=== PATIENT | male | born 1965 | race Hispanic/Latino ===

== ENCOUNTER 2017-12-25 15:47 | Inpatient (IN) | payer MEDICARE ==
[~2017-12-25] VITALS: Ht 170.2 cm; Wt 61.0 kg
[2017-12-25] MEDS ORDERED: ONDANSETRON HCL 4 MG/2 ML VIAL ONE (17:43)
[2017-12-25] MEDS ORDERED: IBUPROFEN 600 MG TABLET ONE (17:44)
[2017-12-25] MEDS ORDERED: LEVOFLOXACIN 500 MG/D5W 100 ML 100 ML ONE (17:44)
[2017-12-25] MEDS ORDERED: CEFTRIAXONE SODIUM 2 GM VIAL ONE (17:44)
[2017-12-25] MEDS ORDERED: MORPHINE SULFATE 2 MG/ML 1ML SYG ONE (17:45)
[2017-12-25 17:50] LABS: BASOPHILS % (AUTO) 0.2 % (0.0-5.0); HEMATOCRIT 30.6 % (42-54); LYMPHOCYTES % (AUTO) 4.6 % (21.0-51.0); MEAN CORPUSCULAR HEMOGLOBIN 28.3 pg (27.0-33.0); MEAN CORPUSCULAR HGB CONC 32.2 g/dL (32.0-36.0); MEAN CORPUSCULAR VOLUME 87.9 fL (79-99); NEUTROPHILS % (AUTO) 89.2 % (40.0-77.0); PLATELET COUNT (AUTO) 262 K/uL (130-400); RED BLOOD CELL COUNT(AUTO) 3.48 MIL/uL (4.50-6.20); WHITE BLOOD COUNT (AUTO) 20.5 K/uL (4.8-10.8)
[2017-12-25 18:02] LABS: INR 0.99 (0.85-1.15); PARTIAL THROMBOPLASTIN TIME 27.7 SEC (26.3-35.5); PROTHROMBIN TIME 10.4 SEC (9.6-11.6)
[2017-12-25 18:25] LABS: ALANINE AMINOTRANSFERASE 20 U/L (12-78); ASPARTATE AMINOTRANSFERASE 23 U/L (10-37); BILIRUBIN,TOTAL 0.3 mg/dL (0.2-1.0); CARBON DIOXIDE 16 mmol/L (21-32); CHLORIDE 99 mmol/L (101-111); CREATINE KINASE MB 2.7 ng/mL (0.5-3.6); CREATINE KINASE, TOTAL 207 U/L (21-232); CREATININE 6.3 mg/dL (0.5-1.5); GLOMERULAR FILTR. RATE CALC 10 mL/min (>60); GLUCOSE,RANDOM 206 mg/dL (70-105); MYOGLOBIN 1206 ng/mL (10-92); POTASSIUM 4.8 mmol/L (3.5-5.1); SODIUM SERUM 133 mmol/L (136-145); TOTAL PROTEIN, SERUM 7.2 g/dL (6.0-8.3); TROPONIN I < 0.04 ng/mL (0.00-0.06)
[2017-12-25 18:27] LABS: UREA NITROGEN, BLOOD 102 mg/dL (7-18)
[2017-12-25] MEDS ORDERED: IBUPROFEN 100 MG/5 ML SUSP UDCUP ONE (20:44)
[2017-12-25] MEDS: SODIUM CHLORIDE 0.9% 1000ML 1,000 ML IV SCH (21:15)
[2017-12-26] MEDS ORDERED: LORAZEPAM 2 MG/ML 1 ML VIAL ONE (00:13)
[2017-12-26 00:50] VITALS: BP 90/50
[2017-12-26] MEDS ORDERED: INSLAN SQ (00:54)
[2017-12-26] MEDS: SODIUM CHLORIDE 0.9% 1000ML 1,000 ML IV SCH ×4 (01:15→16:38)
[2017-12-26] MEDS ORDERED: DEXTROSE 50%-WATER 50 ML DISP.SYRIN IV PRN (02:30)
[2017-12-26] MEDS ORDERED: GLUCAGON 1MG KIT 1 MG ML IM PRN (02:30)
[2017-12-26] MEDS ORDERED: ONDANSETRON HCL MDV 20ML 2 MG/ML VIAL IVP PRN (02:45)
[2017-12-26 03:30] VITALS: BP 92/52
[2017-12-26 04:53] LABS: BASOPHILS % (AUTO) 0.3 % (0.0-5.0); EOSINOPHILS % (AUTO) 0.2 % (0.0-8.0); HEMATOCRIT 28.3 % (42-54); LYMPHOCYTES % (AUTO) 6.9 % (21.0-51.0); MEAN CORPUSCULAR HGB CONC 33.4 g/dL (32.0-36.0); MEAN CORPUSCULAR VOLUME 89.6 fL (79-99); MONOCYTES % (AUTO) 4.5 % (3.0-13.0); NEUTROPHILS % (AUTO) 88.1 % (40.0-77.0); PLATELET COUNT (AUTO) 268 K/uL (130-400); RED BLOOD CELL COUNT(AUTO) 3.16 MIL/uL (4.50-6.20); RED CELL DISTRIBUTION WIDTH 13.9 % (11.0-15.5); WHITE BLOOD COUNT (AUTO) 17.8 K/uL (4.8-10.8)
[2017-12-26 05:37] LABS: ALBUMIN 2.5 g/dL (3.5-5.0); BILIRUBIN,TOTAL 0.1 mg/dL (0.2-1.0); CREATININE 6.3 mg/dL (0.5-1.5); POTASSIUM 4.8 mmol/L (3.5-5.1); TOTAL PROTEIN, SERUM 6.5 g/dL (6.0-8.3)
[2017-12-26 06:04] LABS: HIGH SENSITIVITY CRP 142.44 mg/L (0.0-3.0)
[2017-12-26] MEDS: INSULIN HUMULIN R 100 UNIT/ML 3ML SQ SCH ×4 (06:06→21:00)
[2017-12-26] MEDS: ZOSYN 3.375GM+NS 50ML 50 ML IV SCH ×2 (06:27→18:01)
[2017-12-26 07:49] VITALS: BP 159/62
[2017-12-26 08:34] LABS: APPEARANCE,URINE Clear (CLEAR); BILIRUBIN,URINE Negative (NEGATIVE); COLOR,URINE Yellow (YELLOW); GLUCOSE, URINE (UA) 250 mg/dL (NEGATIVE); KETONES,URINE Negative (NEGATIVE); LEUKOCYTE ESTERASE ,URINE Negative (NEGATIVE); NITRATE,URINE Negative (NEGATIVE); OCCULT BLOOD,URINE Trace (NEGATIVE); PROTEIN,URINE 300 (NEGATIVE); UROBILINOGEN,URINE 0.2 mg/dL (0.2-1.0)
[2017-12-26 09:07] LABS: BACTERIA,URINE Rare /HPF (None Seen); RBC,URINE 0-1 /HPF (0-1); SQUAMOUS EPITHELIAL CELL,UR Rare /HPF (0-2); WBC,URINE 0-1 /HPF (0-1)
[2017-12-26] MEDS ORDERED: SODIUM CHLORIDE 0.9% 1000ML 1,000 ML IV SCH (09:36)
[2017-12-26] MEDS ORDERED: VANCOMYCIN PROTOCOL PER PHARMACY IV SCH (10:00)
[2017-12-26] MEDS: VANCOMYCIN 1GM+NS 250ML 250 ML IV SCH (10:24)
[2017-12-26 11:27] VITALS: BP 123/53
[2017-12-26] MEDS ORDERED: FENO54TA6 PO (13:55)
[2017-12-26] MEDS ORDERED: PATI8.4P PO (13:55)
[2017-12-26] MEDS ORDERED: FISH OIL PO (13:55)
[2017-12-26] MEDS ORDERED: ATOR20TA65 PO (13:55)
[2017-12-26] MEDS ORDERED: CILO50TA PO (13:55)
[2017-12-26] MEDS ORDERED: MULT-729 PO (13:55)
[2017-12-26] MEDS ORDERED: PANT40TA PO (13:55)
[2017-12-26] MEDS ORDERED: CALC625T77 PO (13:55)
[2017-12-26] MEDS ORDERED: ENAL5TAB PO (13:55)
[2017-12-26] MEDS ORDERED: ASPI-891 PO (13:55)
[2017-12-26] MEDS ORDERED: ESCI5TAB10 PO (13:55)
[2017-12-26 16:14] VITALS: BP 111/54
[2017-12-26 19:15] VITALS: BP 128/60
[2017-12-27] MEDS: HYDROCODONE/ACETAMINOPHEN 7.5/325 MG TAB PO PRN (01:11)
[2017-12-27] MEDS: SODIUM CHLORIDE 0.9% 1000ML 1,000 ML IV SCH ×3 (01:11→18:00)
[2017-12-27 03:40] VITALS: BP 120/59
[2017-12-27] MEDS: ZOSYN 3.375GM+NS 50ML 50 ML IV SCH ×2 (05:11→18:00)
[2017-12-27 05:21] LABS: HEMATOCRIT 26.5 % (42-54); MEAN CORPUSCULAR HEMOGLOBIN 28.9 pg (27.0-33.0); MEAN CORPUSCULAR HGB CONC 32.5 g/dL (32.0-36.0); MEAN CORPUSCULAR VOLUME 88.9 fL (79-99); PLATELET COUNT (AUTO) 247 K/uL (130-400); RED BLOOD CELL COUNT(AUTO) 2.98 MIL/uL (4.50-6.20); RED CELL DISTRIBUTION WIDTH 13.7 % (11.0-15.5); WHITE BLOOD COUNT (AUTO) 13.6 K/uL (4.8-10.8)
[2017-12-27 05:30] LABS: POTASSIUM 4.1 mmol/L (3.5-5.1)
[2017-12-27] MEDS: INSULIN HUMULIN R 100 UNIT/ML 3ML SQ SCH ×4 (05:59→20:56)
[2017-12-27 07:52] VITALS: BP 129/75
[2017-12-27 11:12] VITALS: BP 129/61
[2017-12-27] MEDS: ACETAMINOPHEN 325 MG TAB PO PRN (14:21)
[2017-12-27 16:56] VITALS: BP 120/55
[2017-12-27] MEDS: FENOFIBRATE 67 MG PO SCH (17:00)
[2017-12-27] MEDS: FISH OIL 1000 MG/CAP PO SCH (17:13)
[2017-12-27] MEDS: PSYLLIUM SEED 1 EACH PACKET PO SCH (17:16)
[2017-12-27] MEDS ORDERED: COMPOUND IV MISC 1 EACH IVSOLN MISC PRN (18:30)
[2017-12-27 20:04] VITALS: BP 123/53
[2017-12-27] MEDS: ATORVASTATIN CALCIUM 20 MG TABLET PO SCH (20:45)
[2017-12-27] MEDS: IRON SUCROSE COMPLEX 100 MG in SODIUM CHLORIDE 0.9% 50 ML IV SCH (20:52)
[2017-12-28 00:08] VITALS: BP 119/59
[2017-12-28] MEDS: SODIUM CHLORIDE 0.9% 1000ML 1,000 ML IV SCH ×3 (00:41→20:53)
[2017-12-28] MEDS: ZOSYN 3.375GM+NS 50ML 50 ML IV SCH ×2 (00:41→17:12)
[2017-12-28] MEDS: ACETAMINOPHEN 325 MG TAB PO PRN ×3 (03:49→19:45)
[2017-12-28 04:12] VITALS: BP 153/64
[2017-12-28] MEDS: INSULIN HUMULIN R 100 UNIT/ML 3ML SQ SCH ×4 (05:56→20:51)
[2017-12-28] MEDS: INSULIN GLARGINE 100 UNITS/ML 10 ML VIAL SQ SCH (07:20)
[2017-12-28 07:58] VITALS: BP 138/55
[2017-12-28] MEDS: FOLIC ACID/VITAMIN B COMP W-C 1 MG CAPSULE PO SCH (07:59)
[2017-12-28] MEDS: FISH OIL 1000 MG/CAP PO SCH ×3 (07:59→17:10)
[2017-12-28] MEDS: ASPIRIN 325MG EC TAB 325 MG TABLET.DR PO SCH (07:59)
[2017-12-28] MEDS: FENOFIBRATE 67 MG PO SCH ×2 (08:00→17:00)
[2017-12-28] MEDS: PATIROMER CALCIUM SORBITEX 8.4 GM PO SCH (08:00)
[2017-12-28] MEDS: ENOXAPARIN SODIUM 30 MG/0.3 ML SQ SCH (08:01)
[2017-12-28] MEDS: PANTOPRAZOLE SODIUM 40 MG TABLET.DR PO SCH (08:02)
[2017-12-28] MEDS: MULTIVITAMIN WITH MINERALS TABLET PO SCH (08:06)
[2017-12-28] MEDS: IRON SUCROSE COMPLEX 100 MG in SODIUM CHLORIDE 0.9% 50 ML IV SCH (08:07)
[2017-12-28] MEDS: PSYLLIUM SEED 1 EACH PACKET PO SCH (08:07)
[2017-12-28] MEDS: VANCOMYCIN 1GM+NS 250ML 250 ML IV SCH (11:30)
[2017-12-28 12:07] VITALS: BP 171/85
[2017-12-28] MEDS ORDERED: LEVOFLOXACIN 500 MG TABLET PO SCH (12:30)
[2017-12-28 13:28] LABS: BASOPHILS % (AUTO) 0.1 % (0.0-5.0); HEMATOCRIT 33.4 % (42-54); LYMPHOCYTES % (AUTO) 2.6 % (21.0-51.0); MEAN CORPUSCULAR HEMOGLOBIN 29.7 pg (27.0-33.0); MEAN CORPUSCULAR HGB CONC 33.7 g/dL (32.0-36.0); MEAN CORPUSCULAR VOLUME 88.2 fL (79-99); MONOCYTES % (AUTO) 6.6 % (3.0-13.0); NEUTROPHILS % (AUTO) 90.7 % (40.0-77.0); NUCLEATED RED BLOOD CELLS 0.1 % (0.0-0.19); PLATELET COUNT (AUTO) 299 K/uL (130-400); RED BLOOD CELL COUNT(AUTO) 3.79 MIL/uL (4.50-6.20); RED CELL DISTRIBUTION WIDTH 13.9 % (11.0-15.5); WHITE BLOOD COUNT (AUTO) 17.6 K/uL (4.8-10.8)
[2017-12-28 13:39] LABS: CREATININE 5.8 mg/dL (0.5-1.5); POTASSIUM 4.4 mmol/L (3.5-5.1)
[2017-12-28 16:26] VITALS: BP 113/61
[2017-12-28] MEDS: ATORVASTATIN CALCIUM 20 MG TABLET PO SCH (19:44)
[2017-12-28 20:08] VITALS: BP 150/71
[2017-12-28] MEDS: HYDROCODONE/ACETAMINOPHEN 7.5/325 MG TAB PO PRN (22:45)
[2017-12-29 00:08] VITALS: BP 111/52
[2017-12-29 04:08] VITALS: BP 124/60
[2017-12-29] MEDS: ZOSYN 3.375GM+NS 50ML 50 ML IV SCH ×2 (05:09→18:09)
[2017-12-29 05:59] LABS: BASOPHILS % (AUTO) 0.2 % (0.0-5.0); EOSINOPHILS % (AUTO) 0.7 % (0.0-8.0); HEMATOCRIT 28.4 % (42-54); LYMPHOCYTES % (AUTO) 7.5 % (21.0-51.0); MEAN CORPUSCULAR HEMOGLOBIN 29.1 pg (27.0-33.0); MEAN CORPUSCULAR HGB CONC 32.2 g/dL (32.0-36.0); MEAN CORPUSCULAR VOLUME 90.3 fL (79-99); MONOCYTES % (AUTO) 8.4 % (3.0-13.0); NEUTROPHILS % (AUTO) 83.2 % (40.0-77.0); PLATELET COUNT (AUTO) 228 K/uL (130-400); RED BLOOD CELL COUNT(AUTO) 3.15 MIL/uL (4.50-6.20); RED CELL DISTRIBUTION WIDTH 14.5 % (11.0-15.5); WHITE BLOOD COUNT (AUTO) 13.2 K/uL (4.8-10.8)
[2017-12-29 06:09] LABS: MAGNESIUM 1.5 mg/dL (1.80-2.40); PHOSPHORUS 3.5 mg/dL (2.5-4.9); POTASSIUM 4.2 mmol/L (3.5-5.1)
[2017-12-29] MEDS: PANTOPRAZOLE SODIUM 40 MG TABLET.DR PO SCH (06:14)
[2017-12-29] MEDS: INSULIN HUMULIN R 100 UNIT/ML 3ML SQ SCH ×4 (06:45→20:31)
[2017-12-29] MEDS: INSULIN GLARGINE 100 UNITS/ML 10 ML VIAL SQ SCH (06:46)
[2017-12-29 07:48] VITALS: BP 173/81
[2017-12-29] MEDS: FENOFIBRATE 67 MG PO SCH ×2 (08:00→17:00)
[2017-12-29] MEDS: PATIROMER CALCIUM SORBITEX 8.4 GM PO SCH (09:00)
[2017-12-29] MEDS: PSYLLIUM SEED 1 EACH PACKET PO SCH (09:00)
[2017-12-29] MEDS ORDERED: LACTULOSE 20 GM/30 ML UDCUP PO PRN (10:00)
[2017-12-29] MEDS: ENOXAPARIN SODIUM 30 MG/0.3 ML SQ SCH (10:01)
[2017-12-29] MEDS: MULTIVITAMIN WITH MINERALS TABLET PO SCH (10:01)
[2017-12-29] MEDS: ASPIRIN 325MG EC TAB 325 MG TABLET.DR PO SCH (10:01)
[2017-12-29] MEDS: FISH OIL 1000 MG/CAP PO SCH ×3 (10:01→17:03)
[2017-12-29] MEDS: FOLIC ACID/VITAMIN B COMP W-C 1 MG CAPSULE PO SCH (10:01)
[2017-12-29] MEDS: SODIUM CHLORIDE 0.9% 1000ML 1,000 ML IV SCH ×2 (10:27→18:10)
[2017-12-29 11:24] VITALS: BP 105/97
[2017-12-29] MEDS: ACETAMINOPHEN 325 MG TAB PO PRN (13:12)
[2017-12-29] MEDS: IRON SUCROSE COMPLEX 100 MG in SODIUM CHLORIDE 0.9% 50 ML IV SCH (14:46)
[2017-12-29 16:16] VITALS: BP 125/59
[2017-12-29] MEDS ORDERED: PHARMACY COMMUNICATION MISC SCH (17:00)
[2017-12-29] MEDS: MEROPENEM 500 MG VIAL IVP SCH (18:26)
[2017-12-29 20:08] VITALS: BP 152/68
[2017-12-29] MEDS: ATORVASTATIN CALCIUM 20 MG TABLET PO SCH (20:12)
[2017-12-30] VITALS (7 sets, daily range): BP systolic 124–172; BP diastolic 52–83
[2017-12-30] MEDS: SODIUM CHLORIDE 0.9% 1000ML 1,000 ML IV SCH ×4 (03:36→23:31)
[2017-12-30] MEDS: ZOSYN 3.375GM+NS 50ML 50 ML IV SCH ×2 (04:35→20:54)
[2017-12-30] MEDS: MEROPENEM 500 MG VIAL IVP SCH ×2 (04:36→20:54)
[2017-12-30] MEDS: INSULIN HUMULIN R 100 UNIT/ML 3ML SQ SCH ×4 (05:57→21:00)
[2017-12-30] MEDS: INSULIN GLARGINE 100 UNITS/ML 10 ML VIAL SQ SCH (07:30)
[2017-12-30] MEDS: PANTOPRAZOLE SODIUM 40 MG TABLET.DR PO SCH (07:30)
[2017-12-30] MEDS: FISH OIL 1000 MG/CAP PO SCH ×3 (08:00→17:00)
[2017-12-30] MEDS: FENOFIBRATE 67 MG PO SCH ×2 (08:00→17:00)
[2017-12-30] MEDS: PATIROMER CALCIUM SORBITEX 8.4 GM PO SCH (09:00)
[2017-12-30] MEDS: ENOXAPARIN SODIUM 30 MG/0.3 ML SQ SCH ×2 (09:00→09:29)
[2017-12-30] MEDS: PSYLLIUM SEED 1 EACH PACKET PO SCH (09:29)
[2017-12-30] MEDS: FOLIC ACID/VITAMIN B COMP W-C 1 MG CAPSULE PO SCH (09:29)
[2017-12-30] MEDS: ASPIRIN 325MG EC TAB 325 MG TABLET.DR PO SCH (09:29)
[2017-12-30] MEDS: IRON SUCROSE COMPLEX 100 MG in SODIUM CHLORIDE 0.9% 50 ML IV SCH (09:30)
[2017-12-30] MEDS: MULTIVITAMIN WITH MINERALS TABLET PO SCH (09:30)
[2017-12-30] MEDS: VANCOMYCIN 1GM+NS 250ML 250 ML IV SCH (10:52)
[2017-12-30 11:13] LABS: CREATININE 4.5 mg/dL (0.5-1.5)
[2017-12-30 11:19] LABS: MEAN CORPUSCULAR HEMOGLOBIN 29.3 pg (27.0-33.0); MEAN CORPUSCULAR HGB CONC 33.3 g/dL (32.0-36.0); MEAN CORPUSCULAR VOLUME 87.9 fL (79-99); PLATELET COUNT (AUTO) 274 K/uL (130-400); RED BLOOD CELL COUNT(AUTO) 3.08 MIL/uL (4.50-6.20); RED CELL DISTRIBUTION WIDTH 14.2 % (11.0-15.5); WHITE BLOOD COUNT (AUTO) 13.3 K/uL (4.8-10.8)
[2017-12-30] MEDS: NICOTINE 21 MG/ 24 HR PATCH TD SCH (14:51)
[2017-12-30] MEDS: FLUCONAZOLE 200 MG/NS 100 ML 100 ML IV SCH ×2 (18:15→23:31)
[2017-12-30] MEDS: ATORVASTATIN CALCIUM 20 MG TABLET PO SCH (19:57)
[2017-12-30] MEDS: ACETAMINOPHEN 325 MG TAB PO PRN (19:58)
[2017-12-30] MEDS: HYDROCODONE/ACETAMINOPHEN 7.5/325 MG TAB PO PRN (21:40)
[2017-12-31 03:16] VITALS: BP 165/77
[2017-12-31 05:29] LABS: HEMATOCRIT 26.1 % (42-54); MEAN CORPUSCULAR HEMOGLOBIN 28.7 pg (27.0-33.0); MEAN CORPUSCULAR HGB CONC 32.8 g/dL (32.0-36.0); MEAN CORPUSCULAR VOLUME 87.6 fL (79-99); PLATELET COUNT (AUTO) 256 K/uL (130-400); RED BLOOD CELL COUNT(AUTO) 2.98 MIL/uL (4.50-6.20); RED CELL DISTRIBUTION WIDTH 14.4 % (11.0-15.5)
[2017-12-31 05:37] LABS: CREATININE 4.5 mg/dL (0.5-1.5); POTASSIUM 4.1 mmol/L (3.5-5.1)
[2017-12-31] MEDS: MEROPENEM 500 MG VIAL IVP SCH ×2 (05:44→18:05)
[2017-12-31] MEDS: ZOSYN 3.375GM+NS 50ML 50 ML IV SCH ×2 (05:45→18:06)
[2017-12-31] MEDS: INSULIN HUMULIN R 100 UNIT/ML 3ML SQ SCH ×5 (05:54→21:31)
[2017-12-31] MEDS: INSULIN GLARGINE 100 UNITS/ML 10 ML VIAL SQ SCH (07:30)
[2017-12-31] MEDS: PANTOPRAZOLE SODIUM 40 MG TABLET.DR PO SCH (07:30)
[2017-12-31] MEDS: FISH OIL 1000 MG/CAP PO SCH ×3 (08:00→17:15)
[2017-12-31] MEDS: FENOFIBRATE 67 MG PO SCH ×2 (08:00→17:00)
[2017-12-31 08:54] VITALS: BP 166/79
[2017-12-31] MEDS: MULTIVITAMIN WITH MINERALS TABLET PO SCH (09:00)
[2017-12-31] MEDS: ASPIRIN 325MG EC TAB 325 MG TABLET.DR PO SCH (09:00)
[2017-12-31] MEDS: PATIROMER CALCIUM SORBITEX 8.4 GM PO SCH (09:00)
[2017-12-31] MEDS: ENOXAPARIN SODIUM 30 MG/0.3 ML SQ SCH (09:00)
[2017-12-31] MEDS: PSYLLIUM SEED 1 EACH PACKET PO SCH (09:00)
[2017-12-31] MEDS: FOLIC ACID/VITAMIN B COMP W-C 1 MG CAPSULE PO SCH (09:00)
[2017-12-31] MEDS: NICOTINE 21 MG/ 24 HR PATCH TD SCH (09:45)
[2017-12-31] MEDS: IRON SUCROSE COMPLEX 100 MG in SODIUM CHLORIDE 0.9% 50 ML IV SCH (09:45)
[2017-12-31] MEDS: FLUCONAZOLE 200 MG/NS 100 ML 100 ML IV SCH (10:13)
[2017-12-31 11:37] VITALS: BP 178/81
[2017-12-31] MEDS ORDERED: SODIUM CHLORIDE 0.9% 1000ML 1,000 ML IV SCH (12:45)
[2017-12-31] MEDS: AMLODIPINE BESYLATE 5 MG TAB PO SCH (12:58)
[2017-12-31 16:29] VITALS: BP 183/80
[2017-12-31] MEDS: HYDROCODONE/ACETAMINOPHEN 7.5/325 MG TAB PO PRN ×2 (17:09→20:03)
[2017-12-31] MEDS: METOPROLOL TARTRATE 25 MG TAB PO SCH (18:05)
[2017-12-31 19:37] VITALS: BP 149/75
[2017-12-31] MEDS: ATORVASTATIN CALCIUM 20 MG TABLET PO SCH (19:53)
[2017-12-31 23:50] VITALS: BP 140/74
[2018-01-01 04:46] VITALS: BP 132/66
[2018-01-01] MEDS: ZOSYN 3.375GM+NS 50ML 50 ML IV SCH ×2 (05:32→18:10)
[2018-01-01] MEDS: MEROPENEM 500 MG VIAL IVP SCH ×2 (05:32→18:10)
[2018-01-01] MEDS: INSULIN GLARGINE 100 UNITS/ML 10 ML VIAL SQ SCH (06:49)
[2018-01-01] MEDS: PANTOPRAZOLE SODIUM 40 MG TABLET.DR PO SCH (06:50)
[2018-01-01] MEDS: INSULIN HUMULIN R 100 UNIT/ML 3ML SQ SCH ×4 (06:50→21:39)
[2018-01-01] MEDS: METOPROLOL TARTRATE 25 MG TAB PO SCH ×2 (07:48→20:19)
[2018-01-01] MEDS: FENOFIBRATE 67 MG PO SCH ×2 (08:00→16:39)
[2018-01-01 08:14] VITALS: BP 155/80
[2018-01-01] MEDS: PATIROMER CALCIUM SORBITEX 8.4 GM PO SCH (09:00)
[2018-01-01] MEDS: PSYLLIUM SEED 1 EACH PACKET PO SCH (09:00)
[2018-01-01] MEDS: FOLIC ACID/VITAMIN B COMP W-C 1 MG CAPSULE PO SCH (09:00)
[2018-01-01] MEDS: ASPIRIN 325MG EC TAB 325 MG TABLET.DR PO SCH (09:00)
[2018-01-01] MEDS: MULTIVITAMIN WITH MINERALS TABLET PO SCH (09:00)
[2018-01-01] MEDS: AMLODIPINE BESYLATE 5 MG TAB PO SCH (09:00)
[2018-01-01] MEDS: ENOXAPARIN SODIUM 30 MG/0.3 ML SQ SCH (09:00)
[2018-01-01] MEDS: FLUCONAZOLE 200 MG/NS 100 ML 100 ML IV SCH (09:06)
[2018-01-01] MEDS: IRON SUCROSE COMPLEX 100 MG in SODIUM CHLORIDE 0.9% 50 ML IV SCH (09:06)
[2018-01-01] MEDS ORDERED: REGADENOSON 0.4 MG/5 ML PF SYG IVP SCH (09:30)
[2018-01-01] MEDS ORDERED: VANCOMYCIN 1.25 GM in SODIUM CHLORIDE 0.9% 250 ML IV SCH (10:30)
[2018-01-01] MEDS ORDERED: COMPOUND IV REFRIGERATED 1 EACH IVSOLN MISC PRN (13:15)
[2018-01-01 14:19] LABS: INR 0.95 (0.85-1.15); PARTIAL THROMBOPLASTIN TIME 29.1 SEC (26.3-35.5)
[2018-01-01 14:29] VITALS: BP 134/58
[2018-01-01] MEDS: NICOTINE 21 MG/ 24 HR PATCH TD SCH (15:56)
[2018-01-01 16:41] VITALS: BP 190/66
[2018-01-01 19:45] VITALS: BP 132/60
[2018-01-01] MEDS: ATORVASTATIN CALCIUM 20 MG TABLET PO SCH (20:19)
[2018-01-01] MEDS: LACTOBACILLUS RHAMNOSUS GG 1 EACH CAP.SPRINK PO SCH (20:19)
[2018-01-01] MEDS: ACETAMINOPHEN 325 MG TAB PO PRN (20:52)
[2018-01-01 23:43] VITALS: BP 135/84
[2018-01-02] VITALS (20 sets, daily range): BP systolic 97–185; BP diastolic 59–88
[2018-01-02] MEDS ORDERED: LABETALOL 20 MG/4 ML DISP.SYRIN IV PRN (04:15)
[2018-01-02 04:29] LABS: BASOPHILS % (AUTO) 0.4 % (0.0-5.0); EOSINOPHILS % (AUTO) 0.8 % (0.0-8.0); HEMATOCRIT 25.6 % (42-54); LYMPHOCYTES % (AUTO) 9.9 % (21.0-51.0); MEAN CORPUSCULAR HEMOGLOBIN 28.9 pg (27.0-33.0); MEAN CORPUSCULAR HGB CONC 33.1 g/dL (32.0-36.0); MEAN CORPUSCULAR VOLUME 87.4 fL (79-99); MONOCYTES % (AUTO) 10.5 % (3.0-13.0); NEUTROPHILS % (AUTO) 78.4 % (40.0-77.0); PLATELET COUNT (AUTO) 273 K/uL (130-400); RED BLOOD CELL COUNT(AUTO) 2.93 MIL/uL (4.50-6.20); RED CELL DISTRIBUTION WIDTH 14.1 % (11.0-15.5); WHITE BLOOD COUNT (AUTO) 15.7 K/uL (4.8-10.8)
[2018-01-02] MEDS ORDERED: LABETALOL HCL 5 MG/ML 20ML VIAL IV ONE (04:34)
[2018-01-02 04:50] LABS: CREATININE 4.7 mg/dL (0.5-1.5); MAGNESIUM 1.6 mg/dL (1.80-2.40); POTASSIUM 4.4 mmol/L (3.5-5.1)
[2018-01-02] MEDS: MEROPENEM 500 MG VIAL IVP SCH ×2 (05:57→19:18)
[2018-01-02] MEDS: ZOSYN 3.375GM+NS 50ML 50 ML IV SCH (05:58)
[2018-01-02] MEDS: INSULIN HUMULIN R 100 UNIT/ML 3ML SQ SCH ×3 (05:58→22:28)
[2018-01-02] MEDS: PANTOPRAZOLE SODIUM 40 MG TABLET.DR PO SCH (07:30)
[2018-01-02] MEDS: INSULIN GLARGINE 100 UNITS/ML 10 ML VIAL SQ SCH (07:30)
[2018-01-02] MEDS: FENOFIBRATE 67 MG PO SCH ×2 (08:00→17:00)
[2018-01-02] MEDS: AMLODIPINE BESYLATE 5 MG TAB PO SCH (08:39)
[2018-01-02] MEDS: METOPROLOL TARTRATE 25 MG TAB PO SCH ×2 (08:39→20:17)
[2018-01-02] MEDS: IRON SUCROSE COMPLEX 100 MG in SODIUM CHLORIDE 0.9% 50 ML IV SCH (08:39)
[2018-01-02] MEDS: ASPIRIN 325MG EC TAB 325 MG TABLET.DR PO SCH (08:39)
[2018-01-02] MEDS: LACTOBACILLUS RHAMNOSUS GG 1 EACH CAP.SPRINK PO SCH ×2 (08:39→20:17)
[2018-01-02] MEDS: FLUCONAZOLE 200 MG/NS 100 ML 100 ML IV SCH (08:39)
[2018-01-02] MEDS: MULTIVITAMIN WITH MINERALS TABLET PO SCH (08:40)
[2018-01-02] MEDS: PSYLLIUM SEED 1 EACH PACKET PO SCH (08:40)
[2018-01-02] MEDS: PATIROMER CALCIUM SORBITEX 8.4 GM PO SCH (08:40)
[2018-01-02] MEDS: NICOTINE 21 MG/ 24 HR PATCH TD SCH (08:41)
[2018-01-02] MEDS: FOLIC ACID/VITAMIN B COMP W-C 1 MG CAPSULE PO SCH (08:41)
[2018-01-02] MEDS: ENOXAPARIN SODIUM 30 MG/0.3 ML SQ SCH (08:41)
[2018-01-02] MEDS ORDERED: PHARMACY COMMUNICATION MISC SCH ×2 (13:30→13:45)
[2018-01-02] MEDS ORDERED: ZYVOX 600 MG TAB PO ONE (15:00)
[2018-01-02] MEDS ORDERED: SODIUM CHLORIDE 0.9% 1000ML 1,000 ML IV ONE (15:18)
[2018-01-02] MEDS ORDERED: LIDOCAINE PF 2% 5ML ABBOJECT ONE (15:21)
[2018-01-02] MEDS ORDERED: PROPOFOL 10 MG/ML 20ML VIAL IV ONE (15:21)
[2018-01-02] MEDS ORDERED: FENTANYL CITRATE PF 50 MCG/1 ML 2ML VIAL ONE (15:21)
[2018-01-02] MEDS ORDERED: SUCCINYLCHOLINE CHLORIDE 20 MG/ML 10 ML VIAL ONE (15:21)
[2018-01-02] MEDS ORDERED: EPHEDRINE SULFATE 50 MG/ML AMPULE ONE (16:03)
[2018-01-02] MEDS ORDERED: MORPHINE SULFATE 4 MG/1ML SYG IV PRN (17:00)
[2018-01-02] MEDS ORDERED: ONDANSETRON HCL 4 MG/2 ML VIAL IVP PRN (17:00)
[2018-01-02] MEDS ORDERED: MEPERIDINE-PF 25 MG/ML SYG ONE (17:18)
[2018-01-02] MEDS: ATORVASTATIN CALCIUM 20 MG TABLET PO SCH (20:17)
[2018-01-02] MEDS: HYDROCODONE/ACETAMINOPHEN 7.5/325 MG TAB PO PRN (21:11)
[2018-01-03] VITALS: BP 106/57
[2018-01-03 04:00] VITALS: BP 107/69
[2018-01-03 04:58] LABS: BASOPHILS % (AUTO) 0.5 % (0.0-5.0); EOSINOPHILS % (AUTO) 1.6 % (0.0-8.0); HEMATOCRIT 26.6 % (42-54); LYMPHOCYTES % (AUTO) 13.9 % (21.0-51.0); MEAN CORPUSCULAR HEMOGLOBIN 29.2 pg (27.0-33.0); MEAN CORPUSCULAR HGB CONC 33.2 g/dL (32.0-36.0); MEAN CORPUSCULAR VOLUME 87.8 fL (79-99); MONOCYTES % (AUTO) 10.2 % (3.0-13.0); NEUTROPHILS % (AUTO) 73.8 % (40.0-77.0); PLATELET COUNT (AUTO) 279 K/uL (130-400); RED BLOOD CELL COUNT(AUTO) 3.03 MIL/uL (4.50-6.20); RED CELL DISTRIBUTION WIDTH 14.3 % (11.0-15.5); WHITE BLOOD COUNT (AUTO) 9.3 K/uL (4.8-10.8)
[2018-01-03 05:04] LABS: CREATININE 4.5 mg/dL (0.5-1.5); MAGNESIUM 1.7 mg/dL (1.80-2.40); POTASSIUM 4.6 mmol/L (3.5-5.1)
[2018-01-03] MEDS: MEROPENEM 500 MG VIAL IVP SCH ×2 (05:50→18:37)
[2018-01-03] MEDS: ZYVOX 600 MG TAB PO SCH ×2 (05:51→18:37)
[2018-01-03] MEDS: PANTOPRAZOLE SODIUM 40 MG TABLET.DR PO SCH (06:17)
[2018-01-03] MEDS: INSULIN GLARGINE 100 UNITS/ML 10 ML VIAL SQ SCH (06:19)
[2018-01-03] MEDS: INSULIN HUMULIN R 100 UNIT/ML 3ML SQ SCH ×4 (06:20→21:05)
[2018-01-03 08:00] VITALS: BP 181/83
[2018-01-03] MEDS: FENOFIBRATE 67 MG PO SCH ×2 (08:00→17:00)
[2018-01-03] MEDS: NICOTINE 21 MG/ 24 HR PATCH TD SCH (09:00)
[2018-01-03] MEDS: PATIROMER CALCIUM SORBITEX 8.4 GM PO SCH (09:00)
[2018-01-03] MEDS: ASPIRIN 325MG EC TAB 325 MG TABLET.DR PO SCH (09:23)
[2018-01-03] MEDS: LACTOBACILLUS RHAMNOSUS GG 1 EACH CAP.SPRINK PO SCH ×2 (09:23→20:56)
[2018-01-03] MEDS: METOPROLOL TARTRATE 25 MG TAB PO SCH ×2 (09:24→20:56)
[2018-01-03] MEDS: AMLODIPINE BESYLATE 5 MG TAB PO SCH (09:24)
[2018-01-03] MEDS: FOLIC ACID/VITAMIN B COMP W-C 1 MG CAPSULE PO SCH (09:24)
[2018-01-03] MEDS: ENOXAPARIN SODIUM 30 MG/0.3 ML SQ SCH (09:27)
[2018-01-03] MEDS: PSYLLIUM SEED 1 EACH PACKET PO SCH (09:28)
[2018-01-03] MEDS: FLUCONAZOLE 200 MG/NS 100 ML 100 ML IV SCH (09:43)
[2018-01-03] MEDS: MULTIVITAMIN WITH MINERALS TABLET PO SCH (09:44)
[2018-01-03] MEDS: IRON SUCROSE COMPLEX 100 MG in SODIUM CHLORIDE 0.9% 50 ML IV SCH (09:47)
[2018-01-03 11:53] VITALS: BP 180/77
[2018-01-03 15:57] VITALS: BP 169/78
[2018-01-03 19:00] VITALS: BP 157/77
[2018-01-03] MEDS: HYDROCODONE/ACETAMINOPHEN 7.5/325 MG TAB PO PRN (19:04)
[2018-01-03] MEDS: ATORVASTATIN CALCIUM 20 MG TABLET PO SCH (20:56)
[2018-01-04] VITALS (7 sets, daily range): BP systolic 139–161; BP diastolic 72–87
[2018-01-04 04:55] LABS: BASOPHILS % (AUTO) 0.8 % (0.0-5.0); EOSINOPHILS % (AUTO) 2.5 % (0.0-8.0); HEMATOCRIT 24.5 % (42-54); LYMPHOCYTES % (AUTO) 17.7 % (21.0-51.0); MEAN CORPUSCULAR HEMOGLOBIN 30.1 pg (27.0-33.0); MEAN CORPUSCULAR HGB CONC 34.4 g/dL (32.0-36.0); MEAN CORPUSCULAR VOLUME 87.4 fL (79-99); MONOCYTES % (AUTO) 12.5 % (3.0-13.0); NEUTROPHILS % (AUTO) 66.5 % (40.0-77.0); PLATELET COUNT (AUTO) 303 K/uL (130-400); WHITE BLOOD COUNT (AUTO) 7.2 K/uL (4.8-10.8)
[2018-01-04 05:05] LABS: POTASSIUM 4.5 mmol/L (3.5-5.1)
[2018-01-04] MEDS: MEROPENEM 500 MG VIAL IVP SCH ×2 (06:33→16:54)
[2018-01-04] MEDS: ZYVOX 600 MG TAB PO SCH ×2 (06:33→16:54)
[2018-01-04] MEDS: PANTOPRAZOLE SODIUM 40 MG TABLET.DR PO SCH (06:33)
[2018-01-04] MEDS: FENOFIBRATE 67 MG PO SCH ×2 (08:00→17:00)
[2018-01-04] MEDS: INSULIN GLARGINE 100 UNITS/ML 10 ML VIAL SQ SCH (08:11)
[2018-01-04] MEDS: INSULIN HUMULIN R 100 UNIT/ML 3ML SQ SCH ×4 (08:12→21:00)
[2018-01-04] MEDS: PATIROMER CALCIUM SORBITEX 8.4 GM PO SCH (09:00)
[2018-01-04] MEDS: FLUCONAZOLE 200 MG/NS 100 ML 100 ML IV SCH (10:13)
[2018-01-04] MEDS: PSYLLIUM SEED 1 EACH PACKET PO SCH (10:14)
[2018-01-04] MEDS: IRON SUCROSE COMPLEX 100 MG in SODIUM CHLORIDE 0.9% 50 ML IV SCH (10:14)
[2018-01-04] MEDS: ENOXAPARIN SODIUM 30 MG/0.3 ML SQ SCH (10:15)
[2018-01-04] MEDS: NICOTINE 21 MG/ 24 HR PATCH TD SCH (10:15)
[2018-01-04] MEDS: FOLIC ACID/VITAMIN B COMP W-C 1 MG CAPSULE PO SCH (10:15)
[2018-01-04] MEDS: ASPIRIN 325MG EC TAB 325 MG TABLET.DR PO SCH (10:16)
[2018-01-04] MEDS: MULTIVITAMIN WITH MINERALS TABLET PO SCH (10:16)
[2018-01-04] MEDS: METOPROLOL TARTRATE 25 MG TAB PO SCH ×2 (10:16→21:49)
[2018-01-04] MEDS: LACTOBACILLUS RHAMNOSUS GG 1 EACH CAP.SPRINK PO SCH ×2 (10:16→21:49)
[2018-01-04] MEDS: AMLODIPINE BESYLATE 5 MG TAB PO SCH (10:16)
[2018-01-04] MEDS ORDERED: IRON SUCROSE COMPLEX 200 MG in SODIUM CHLORIDE 0.9% 50 ML IV ONE (16:00)
[2018-01-04] MEDS: ATORVASTATIN CALCIUM 20 MG TABLET PO SCH (21:49)
[2018-01-05 04:00] VITALS: BP 134/69
[2018-01-05 05:15] LABS: HEMATOCRIT 24.7 % (42-54); LYMPHOCYTES % (AUTO) 16.4 % (21.0-51.0); MEAN CORPUSCULAR HEMOGLOBIN 28.8 pg (27.0-33.0); MEAN CORPUSCULAR HGB CONC 33.1 g/dL (32.0-36.0); MEAN CORPUSCULAR VOLUME 87.2 fL (79-99); MONOCYTES % (AUTO) 10.7 % (3.0-13.0); NEUTROPHILS % (AUTO) 69.9 % (40.0-77.0); PLATELET COUNT (AUTO) 267 K/uL (130-400); RED BLOOD CELL COUNT(AUTO) 2.83 MIL/uL (4.50-6.20); RED CELL DISTRIBUTION WIDTH 14.2 % (11.0-15.5); WHITE BLOOD COUNT (AUTO) 8.5 K/uL (4.8-10.8)
[2018-01-05] MEDS: ZYVOX 600 MG TAB PO SCH ×2 (05:33→17:31)
[2018-01-05] MEDS: MEROPENEM 500 MG VIAL IVP SCH ×2 (05:33→17:31)
[2018-01-05 05:40] LABS: CREATININE 4.1 mg/dL (0.5-1.5); POTASSIUM 5.1 mmol/L (3.5-5.1)
[2018-01-05] MEDS: INSULIN HUMULIN R 100 UNIT/ML 3ML SQ SCH ×4 (06:10→21:00)
[2018-01-05 06:14] LABS: % IRON SATURATION 99.3 % (30-44)
[2018-01-05] MEDS: PANTOPRAZOLE SODIUM 40 MG TABLET.DR PO SCH (06:45)
[2018-01-05] MEDS: INSULIN GLARGINE 100 UNITS/ML 10 ML VIAL SQ SCH (06:47)
[2018-01-05 07:00] VITALS: BP 140/63
[2018-01-05] MEDS: IRON SUCROSE COMPLEX 100 MG in SODIUM CHLORIDE 0.9% 50 ML IV SCH ×2 (07:50→08:23)
[2018-01-05] MEDS: FENOFIBRATE 67 MG PO SCH ×2 (08:00→16:56)
[2018-01-05] MEDS: FLUCONAZOLE 200 MG/NS 100 ML 100 ML IV SCH (08:24)
[2018-01-05] MEDS: PSYLLIUM SEED 1 EACH PACKET PO SCH (08:25)
[2018-01-05] MEDS: AMLODIPINE BESYLATE 5 MG TAB PO SCH (08:26)
[2018-01-05] MEDS: ASPIRIN 325MG EC TAB 325 MG TABLET.DR PO SCH (08:26)
[2018-01-05] MEDS: NICOTINE 21 MG/ 24 HR PATCH TD SCH (08:26)
[2018-01-05] MEDS: METOPROLOL TARTRATE 25 MG TAB PO SCH ×2 (08:26→21:32)
[2018-01-05] MEDS: LACTOBACILLUS RHAMNOSUS GG 1 EACH CAP.SPRINK PO SCH ×2 (08:26→21:31)
[2018-01-05] MEDS: FOLIC ACID/VITAMIN B COMP W-C 1 MG CAPSULE PO SCH (08:27)
[2018-01-05] MEDS: MULTIVITAMIN WITH MINERALS TABLET PO SCH (08:27)
[2018-01-05] MEDS: ENOXAPARIN SODIUM 30 MG/0.3 ML SQ SCH (08:28)
[2018-01-05] MEDS: PATIROMER CALCIUM SORBITEX 8.4 GM PO SCH (08:40)
[2018-01-05 11:00] VITALS: BP 155/91
[2018-01-05 16:00] VITALS: BP 145/67
[2018-01-05 19:00] VITALS: BP 159/72
[2018-01-05] MEDS: ATORVASTATIN CALCIUM 20 MG TABLET PO SCH (21:32)
[2018-01-06] VITALS (23 sets, daily range): BP systolic 128–160; BP diastolic 54–97
[2018-01-06 05:40] LABS: EOSINOPHILS % (AUTO) 1.7 % (0.0-8.0); HEMATOCRIT 23.2 % (42-54); MEAN CORPUSCULAR HEMOGLOBIN 29.6 pg (27.0-33.0); MEAN CORPUSCULAR HGB CONC 34.1 g/dL (32.0-36.0); MEAN CORPUSCULAR VOLUME 86.8 fL (79-99); MONOCYTES % (AUTO) 7.7 % (3.0-13.0); NEUTROPHILS % (AUTO) 70.6 % (40.0-77.0); PLATELET COUNT (AUTO) 277 K/uL (130-400); RED BLOOD CELL COUNT(AUTO) 2.67 MIL/uL (4.50-6.20); RED CELL DISTRIBUTION WIDTH 14.2 % (11.0-15.5); WHITE BLOOD COUNT (AUTO) 8.4 K/uL (4.8-10.8)
[2018-01-06 05:52] LABS: CREATININE 4.8 mg/dL (0.5-1.5); MAGNESIUM 1.9 mg/dL (1.80-2.40); POTASSIUM 4.6 mmol/L (3.5-5.1)
[2018-01-06] MEDS: MEROPENEM 500 MG VIAL IVP SCH ×2 (05:56→18:16)
[2018-01-06] MEDS: PANTOPRAZOLE SODIUM 40 MG TABLET.DR PO SCH (05:56)
[2018-01-06] MEDS: ZYVOX 600 MG TAB PO SCH ×2 (05:57→18:16)
[2018-01-06] MEDS: INSULIN HUMULIN R 100 UNIT/ML 3ML SQ SCH ×4 (06:07→21:00)
[2018-01-06] MEDS: INSULIN GLARGINE 100 UNITS/ML 10 ML VIAL SQ SCH (07:30)
[2018-01-06] MEDS: FENOFIBRATE 67 MG PO SCH ×2 (08:00→17:00)
[2018-01-06] MEDS: ENOXAPARIN SODIUM 30 MG/0.3 ML SQ SCH (09:00)
[2018-01-06] MEDS: FOLIC ACID/VITAMIN B COMP W-C 1 MG CAPSULE PO SCH (09:00)
[2018-01-06] MEDS: LACTOBACILLUS RHAMNOSUS GG 1 EACH CAP.SPRINK PO SCH ×2 (09:00→21:37)
[2018-01-06] MEDS: NICOTINE 21 MG/ 24 HR PATCH TD SCH (09:00)
[2018-01-06] MEDS: PSYLLIUM SEED 1 EACH PACKET PO SCH (09:00)
[2018-01-06] MEDS: ASPIRIN 325MG EC TAB 325 MG TABLET.DR PO SCH (09:00)
[2018-01-06] MEDS: MULTIVITAMIN WITH MINERALS TABLET PO SCH (09:00)
[2018-01-06] MEDS: PATIROMER CALCIUM SORBITEX 8.4 GM PO SCH (09:00)
[2018-01-06] MEDS: AMLODIPINE BESYLATE 5 MG TAB PO SCH (09:13)
[2018-01-06] MEDS: METOPROLOL TARTRATE 25 MG TAB PO SCH ×2 (09:13→21:38)
[2018-01-06] MEDS: IRON SUCROSE COMPLEX 100 MG in SODIUM CHLORIDE 0.9% 50 ML IV SCH ×2 (09:14→18:04)
[2018-01-06] MEDS: FLUCONAZOLE 200 MG/NS 100 ML 100 ML IV SCH (09:14)
[2018-01-06] MEDS ORDERED: ONDANSETRON HCL 4 MG/2 ML VIAL ONE (10:37)
[2018-01-06] MEDS ORDERED: LIDOCAINE PF 2% 5ML ABBOJECT ONE (10:37)
[2018-01-06] MEDS ORDERED: DEXAMETHASONE SOD PHOSPHATE 10MG/ML 1ML VIAL ONE (10:37)
[2018-01-06] MEDS ORDERED: SUCCINYLCHOLINE 200MG/10ML SYR ONE (10:37)
[2018-01-06] MEDS ORDERED: MIDAZOLAM HCL 1 MG/ML 2ML VIAL ONE (10:38)
[2018-01-06] MEDS ORDERED: ROCURONIUM 10MG/1ML SYR 10 MG/ML ML ONE (10:39)
[2018-01-06] MEDS ORDERED: PROPOFOL 10 MG/ML 20ML VIAL IV ONE (10:39)
[2018-01-06] MEDS ORDERED: NEOSTIGMINE 5MG/5ML SYR IV ONE (10:39)
[2018-01-06] MEDS ORDERED: FENTANYL CITRATE PF 50 MCG/1 ML 2ML VIAL ONE (10:40)
[2018-01-06] MEDS ORDERED: SODIUM CHLORIDE 0.9% 1000ML 1,000 ML IV ONE (13:29)
[2018-01-06] MEDS ORDERED: KETAMINE 50MG/ML SYRINGE 50 MG/ML DISP.SYRIN IV ONE ×2 (13:55→13:58)
[2018-01-06] MEDS ORDERED: GLYCOPYRROLATE 1 MG/5 ML SYRINGE ONE (14:28)
[2018-01-06] MEDS ORDERED: EPHEDRINE SULFATE 50 MG/ML AMPULE ONE (14:31)
[2018-01-06] MEDS ORDERED: EPOETIN ALFA 10,000 UNIT/ML VIAL SQ SCH (21:00)
[2018-01-06] MEDS: ATORVASTATIN CALCIUM 20 MG TABLET PO SCH (21:38)
[2018-01-07 04:20] VITALS: BP 151/74
[2018-01-07 05:09] LABS: BASOPHILS % (AUTO) 0.8 % (0.0-5.0); EOSINOPHILS % (AUTO) 1.6 % (0.0-8.0); HEMATOCRIT 25.3 % (42-54); LYMPHOCYTES % (AUTO) 16.3 % (21.0-51.0); MEAN CORPUSCULAR HEMOGLOBIN 28.7 pg (27.0-33.0); MEAN CORPUSCULAR HGB CONC 33.1 g/dL (32.0-36.0); MEAN CORPUSCULAR VOLUME 86.8 fL (79-99); MONOCYTES % (AUTO) 8.2 % (3.0-13.0); NEUTROPHILS % (AUTO) 73.1 % (40.0-77.0); PLATELET COUNT (AUTO) 244 K/uL (130-400); RED BLOOD CELL COUNT(AUTO) 2.92 MIL/uL (4.50-6.20); RED CELL DISTRIBUTION WIDTH 14.4 % (11.0-15.5); WHITE BLOOD COUNT (AUTO) 7.9 K/uL (4.8-10.8)
[2018-01-07 05:27] LABS: CREATININE 5.1 mg/dL (0.5-1.5); POTASSIUM 5.1 mmol/L (3.5-5.1)
[2018-01-07] MEDS: INSULIN HUMULIN R 100 UNIT/ML 3ML SQ SCH ×3 (06:04→16:56)
[2018-01-07] MEDS: MEROPENEM 500 MG VIAL IVP SCH (06:04)
[2018-01-07] MEDS: ZYVOX 600 MG TAB PO SCH (06:04)
[2018-01-07] MEDS: PANTOPRAZOLE SODIUM 40 MG TABLET.DR PO SCH (06:04)
[2018-01-07] MEDS: INSULIN GLARGINE 100 UNITS/ML 10 ML VIAL SQ SCH (06:12)
[2018-01-07] MEDS: FENOFIBRATE 67 MG PO SCH (08:00)
[2018-01-07] MEDS: LACTOBACILLUS RHAMNOSUS GG 1 EACH CAP.SPRINK PO SCH (08:20)
[2018-01-07] MEDS: ASPIRIN 325MG EC TAB 325 MG TABLET.DR PO SCH (08:20)
[2018-01-07] MEDS: AMLODIPINE BESYLATE 5 MG TAB PO SCH (08:21)
[2018-01-07] MEDS: METOPROLOL TARTRATE 25 MG TAB PO SCH (08:21)
[2018-01-07] MEDS: PSYLLIUM SEED 1 EACH PACKET PO SCH (08:21)
[2018-01-07] MEDS: NICOTINE 21 MG/ 24 HR PATCH TD SCH (08:21)
[2018-01-07] MEDS: MULTIVITAMIN WITH MINERALS TABLET PO SCH (08:21)
[2018-01-07] MEDS: ENOXAPARIN SODIUM 30 MG/0.3 ML SQ SCH (08:21)
[2018-01-07] MEDS: FOLIC ACID/VITAMIN B COMP W-C 1 MG CAPSULE PO SCH (08:21)
[2018-01-07] MEDS: IRON SUCROSE COMPLEX 100 MG in SODIUM CHLORIDE 0.9% 50 ML IV SCH (08:22)
[2018-01-07 08:31] VITALS: BP 159/85
[2018-01-07] MEDS: FLUCONAZOLE 200 MG/NS 100 ML 100 ML IV SCH (08:33)
[2018-01-07] MEDS: PATIROMER CALCIUM SORBITEX 8.4 GM PO SCH (08:36)
[2018-01-07 12:41] VITALS: BP 146/70
[2018-01-07 16:00] VITALS: BP 147/71
== END 2018-01-07 19:45 | DRG 853 ==
LOC: EDH 15:47 → EDHIP 20:15 → 4AH 12-26 00:50 → 3AH 01-02 18:26
PROVIDERS: ADMIT Hospitalist; ATTEND Hospitalist
PROC: 3E10X8Z Irrigation of Skin and Mucous Membranes using Irrigating Substance (ICD-10-PCS; 2018-01-02)
PROC: 0DBP0ZZ Excision of Rectum, Open Approach (ICD-10-PCS; principal; 2018-01-02 15:46)
PROC: 0D9P0ZZ Drainage of Rectum, Open Approach (ICD-10-PCS; 2018-01-02 15:46)
DX: A41.9 Sepsis, unspecified organism (principal); N17.0 Acute kidney failure with tubular necrosis; L03.314 Cellulitis of groin; F84.0 Autistic disorder; E44.1 Mild protein-calorie malnutrition; L02.214 Cutaneous abscess of groin; K61.2 Anorectal abscess; L02.215 Cutaneous abscess of perineum; T79.7XXA Traumatic subcutaneous emphysema, initial encounter; N49.2 Inflammatory disorders of scrotum; N50.89 Other specified disorders of the male genital organs; Z79.84 Long term (current) use of oral hypoglycemic drugs; N18.9 Chronic kidney disease, unspecified; E11.21 Type 2 diabetes mellitus with diabetic nephropathy; I25.10 Atherosclerotic heart disease of native coronary artery without angina pectoris; D63.8 Anemia in other chronic diseases classified elsewhere; I12.9 Hypertensive chronic kidney disease with stage 1 through stage 4 chronic kidney disease, or unspecified chronic kidney disease; E11.22 Type 2 diabetes mellitus with diabetic chronic kidney disease; F17.200 Nicotine dependence, unspecified, uncomplicated; F32.9 Major depressive disorder, single episode, unspecified; G89.29 Other chronic pain; E11.51 Type 2 diabetes mellitus with diabetic peripheral angiopathy without gangrene; E78.5 Hyperlipidemia, unspecified; F20.9 Schizophrenia, unspecified; F79 Unspecified intellectual disabilities; K40.90 Unilateral inguinal hernia, without obstruction or gangrene, not specified as recurrent; K57.30 Diverticulosis of large intestine without perforation or abscess without bleeding; Z68.21 Body mass index [BMI] 21.0-21.9, adult; Z79.2 Long term (current) use of antibiotics; Z79.4 Long term (current) use of insulin; Z83.3 Family history of diabetes mellitus
CPT/HCPCS: 36415; 71045; 72192; 76770; 76870; 78452; 80048; 80053; 80202; 81001; 82550; 82553; 82728; 82948; 83540; 83550; 83605; 83735; 83874; 84100; 84484; 85025; 85027; 85610; 85730; 86141; 87040; 87070; 87076; 87088; 87205; 93005; 93017; 93306; 93971; 96374; 97039; A4218; A9500; J0330; J0696; J0885; J1100; J1450; J1650; J1756; J1815; J1956; J2001; J2060; J2175; J2185; J2250; J2405; J2543; J2704; J2710; J2785; J3010; J3370; J3490; J7030